=== PATIENT | male | born 1955 | race Caucasian/White ===

== ENCOUNTER → 2020-04-11 11:51 | Outpatient (CLI) | payer BC, SELFPAY ==
--- NOTE | ~2020-04-11 | XR_ITS ---
XR ribs BI 3V w CXR 2V DATE: 04/11/2020 12:13 INDICATION: Pleurodynia TECHNIQUE: PA and lateral views of the chest. 3 views of right ribs. 3 views of left ribs. COMPARISON: 01/03/2008 two-view chest FINDINGS: Heart size is within normal range. No hilar or mediastinal enlargement. No pulmonary infilt rate or consolidation, pleural effusion or pulmonary vascular congestion or pneumothorax. There is mild to moderate degenerative spurring of the thoracic spine. No left or right rib fracture or bone destruction is detected. IMPRESSION: No active cardiopulmonary disease No rib fracture or bone destruction is detected Degenerative changes of the thoracic spine Reviewed, dictated and finalized at location A. LING MACHINE OPERATOR
== END ==
PROVIDERS: PCP Family Medicine; Visit Provider Nurse Practitioner Family
DX: R07.81 Pleurodynia (principal); M51.34 Other intervertebral disc degeneration, thoracic region
CPT/HCPCS: 71046; 71110

== ENCOUNTER → 2020-05-19 01:04 | Outpatient (CLI) | payer BC, SELFPAY ==
[2020-05-19 19:48] LABS: SARS-CoV-2 RNA PCR Negative
== END ==
PROVIDERS: PCP Family Medicine; Visit Provider Internal Medicine Gastroenterology
DX: Z01.812 Encounter for preprocedural laboratory examination (principal); Z20.822 Contact with and (suspected) exposure to COVID-19
CPT/HCPCS: C9803; U0003; U0005

== ENCOUNTER 2020-05-22 00:29 | Day surgery (SDC) | payer BC, SELFPAY ==
[2020-04-16 10:41] VITALS: BMI 34.4
--- NOTE | 2020-04-23 16:20 | PC.NURSE ---
pt. rescheduled procedure due to family emergency. Called and reviewed updated date/times for procedure and COVID testing with patient. Sly Chong RN 04/23/20 [id number].
[2020-05-22 06:15] LABS: Glucose Point of Care 198 (65-105)
[2020-05-22 06:18] VITALS: BP 155/95; PULSE 104; RESP 18; TEMP 35.7; O2SAT 98
[2020-05-22] MEDS: LACTATED RINGERS 1,000 ML 150 ML IV CONT (06:39)
--- NOTE | 2020-05-22 07:12 | WPDANESEPPF ---
Anes - Initial Pre Proc Eval Procedure: Operation Date: 05/22/20 07:30 Proposed Procedures p Colonoscopy - Clifford Morel MD s [facility] Hemorrhoid Treatment - Clifford Morel MD Date/Time: 05/22/20 07:12 Surgeon: Clifford Morel MD Pre Op Diagnosis: hemorrhoids Patient Data Age: 64 Gender: M Height: 5 ft 11 in Weight: 111.2 kg Last Vital Signs Temp 35.7 C L 05/22/20 06:18 Pulse 104 H 05/22/20 06:18 Resp 18 05/22/20 06:18 BP 155/95 H 05/22/20 06:18 Pulse Ox 98 05/22/20 06:18 Allergies Allergy/AdvReac Type Severity Reaction Status Date / Time No Known Allergies Allergy Verified 05/22/20 06:54 Home Medications Medication Instructions Recorded Confirmed Type metformin 500 mg tablet 1,000 mg PO BID #360 tablet 04/25/19 05/22/20 Rx esomeprazole magnesium 40 mg 40 mg PO DAILY #90 cap 07/29/19 05/22/20 Rx capsule,delayed release flash glucose sensor #6 units 07/29/19 04/23/20 Rx Bio Complete 2 cap PO DAILY 04/16/20 05/22/20 History coQ10 (ubiquinol) 200 mg PO DAILY 04/16/20 05/22/20 History magnesium 500 mg PO DAILY 04/16/20 05/22/20 History wvwqrycppegq-znzuiooy-maixlm 1 tablet PO DAILY 04/16/20 05/22/20 History [Multivitamin 50 Plus] simethicone [Gas Relief 180 mg PO DAILY PRN 04/16/20 05/22/20 History (simethicone)] lisinopril 5 mg tablet See Rx Instructions .ROUTE 04/23/20 05/22/20 Rx .COMPLEX #90 tablet hydrochlorothiazide 25 mg tablet See Rx Instructions .ROUTE 04/29/20 05/22/20 Rx .COMPLEX #90 tablet Laboratory Tests 05/22/20 06:13 POC Capillary Glucose 198 mg/dl H mg/dl (65-105) Patient hx anesthesia problems: none Family hx anesthesia problems: none PMFSH Past Medical History Medical History Benign hypertension BMI 34.0-34.9,adult Diabetes Family History Family History Mother Cerebrovascular accident Diabetes mellitus Father Family history of diabetes mellitus in first degree relative Sibling No problems noted. 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 Questions were solicited and answers provided to the satisfaction of the patient/family/POA.
--- NOTE | 2020-05-22 07:33 | PM.HPGS ---
History of Present Illness History of Present Illness Consent: Risks, benefits, and alternatives have been discussed and questions answered. Patient agrees to proceed with procedure. Chief complaint: hemorrhoids Narrative: Lars Finney is a 64 year old male with history of polyps and blood in stools- also has hemorrhoids Review of Systems Constitutional: Constitutional: Denies headache(s) and Denies weakness Eyes: Eyes: Denies blurry vision ENT: Reports Normal hearing present, Denies headache(s) and Denies neck pain Cardiovascular: Cardiovascular: Denies chest pain and Denies dyspnea Respiratory: Respiratory: Denies dyspnea Gastrointestinal: Gastrointestinal: Reports no additional gastrointestinal complaints Genitourinary: Genitourinary: Denies dysuria Musculoskeletal: Musculoskeletal: Denies neck pain Integumentary/Breasts: Skin/Breast: Denies dry skin Neurologic: Reports Normal hearing present, Denies headache(s) and Denies weakness Psychiatric: Psychiatric: Denies anxiety Endocrine: Endocrine: Denies change in body appearance Hematologic/Lymphatic: Hematologic/Lymphatic: Denies easy bleeding Allergic/Immunologic: Allergic/Immunologic: Denies urticaria PMFSH Past Medical History Medical History Benign hypertension BMI 34.0-34.9,adult Diabetes Family History Family History Mother Cerebrovascular accident Diabetes mellitus Father Family history of diabetes mellitus in first degree relative Sibling No problems noted. 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[employer] Gender identity (if verbalized by the patient): Male Spiritual care concerns: No Meds Home Medications and Allergies Home Medications Medication Instructions Recorded Confirmed Type metformin 500 mg tablet 1,000 mg PO BID #360 tablet 04/25/19 05/22/20 Rx esomeprazole magnesium 40 mg 40 mg PO DAILY #90 cap 07/29/19 05/22/20 Rx capsule,delayed release flash glucose sensor #6 units 07/29/19 04/23/20 Rx Bio Complete 2 cap PO DAILY 04/16/20 05/22/20 History coQ10 (ubiquinol) 200 mg PO DAILY 04/16/20 05/22/20 History magnesium 500 mg PO DAILY 04/16/20 05/22/20 History lzqqecmqzydv-sdmhwhlu-yprdbg 1 tablet PO DAILY 04/16/20 05/22/20 History [Multivitamin 50 Plus] simethicone [Gas Relief 180 mg PO DAILY PRN 04/16/20 05/22/20 History (simethicone)] lisinopril 5 mg tablet See Rx Instructions .ROUTE 04/23/20 05/22/20 Rx .COMPLEX #90 tablet hydrochlorothiazide 25 mg tablet See Rx Instructions .ROUTE 04/29/20 05/22/20 Rx .COMPLEX #90 tablet Allergies Allergy/AdvReac Type Severity Reaction Status Date / Time No Known Allergies Allergy Verified 05/22/20 06:54 Vital Signs Vital Signs - 24 hr 05/22/20 06:18 Temperature 96.3 F L Pulse Rate 104 H Respiratory Rate 18 Blood Pressure 155/95 H Pulse Oximetry 98 Exam Const: General: comfortable and no acute distress HENMT: General nose exam: Normal nares present Eyes: General: appearance normal, both eyes and all related structures Neck: Neck: no JVD Resp: Auscultation: clear to auscultation bilaterally Cardio: Rate: regular rate Rhythm: regular rhythm GI: Inspection: non-distended GI Palp: Yes Soft to palpation Skin: General skin exam: normal color Neuro: General: gait normal Speech: normal speech Extrem: General: normal
[2020-05-22 07:54] VITALS: BP 135/82; PULSE 82; RESP 19; O2SAT 97
--- NOTE | 2020-05-22 07:56 | PM.PROC ---
Procedure Note - Detailed Date of procedure: 05/22/20 Pre-op diagnosis: hemorrhoids Post-op diagnosis: same Procedure performed: IRC Description of procedure: FINDINGS: internal hemorrhoids grade II Patient signed consent. No anal fissure, no bleeding. I introduced anoscope, found grade II non-bleeding internal hemorrhoids, then IRC probe was inserted and used for 1.5 seconds each time x5, patient tolerated procedure and will go to recovery area. Recommendations: use stool softners and avoid straining Surgeon: Clifford Morel MD Complications: No immediate complications Condition: stable
[2020-05-22 08:04] VITALS: BP 127/82; PULSE 78; RESP 18; O2SAT 98
[2020-05-22 08:14] VITALS: BP 147/85; PULSE 13; RESP 18; O2SAT 99
== END 2020-05-22 08:32 | disposition home or self-care (01) ==
PROVIDERS: PCP Family Medicine; Visit Provider Internal Medicine Gastroenterology
PROC: 0DJD8ZZ Inspection of Lower Intestinal Tract, Via Natural or Artificial Opening Endoscopic (ICD-10-PCS; CPT 45378; principal; 2020-05-22 07:30)
PROC: (CPT 46930; 2020-05-22 07:30)
DX: R19.7 Diarrhea, unspecified (principal); K64.8 Other hemorrhoids; Z86.010 Personal history of colon polyps; I10 Essential (primary) hypertension; E11.9 Type 2 diabetes mellitus without complications; Z87.891 Personal history of nicotine dependence; Z79.84 Long term (current) use of oral hypoglycemic drugs
CPT/HCPCS: 45380; 82948; 88305; J2704; J7120

== ENCOUNTER 2020-07-02 10:29 | Outpatient (CLI) | payer BC, SELFPAY | END 2020-07-02 10:30 | disposition home or self-care (01) | LOC: ANHCOVIDVC 10:29 | PROVIDERS: PCP Family Medicine | DX: Z23 Encounter for immunization (principal) | CPT/HCPCS: 0001A; 91300 ==

== ENCOUNTER 2020-07-23 10:31 | Outpatient (CLI) | payer BC, SELFPAY | END 2020-07-23 10:32 | disposition home or self-care (01) | LOC: ANHCOVIDVC 10:31 | PROVIDERS: PCP Family Medicine | DX: Z23 Encounter for immunization (principal) | CPT/HCPCS: 0002A; 91300 ==

== ENCOUNTER → 2020-09-24 13:26 | Outpatient (CLI) | payer BC, SELFPAY ==
--- NOTE | ~2020-09-24 | US_ITS ---
EXAMINATION: US abdomen complete EXAM DATE: 09/24/2020 13:51 INDICATION: Z72.89 - Other problems related to lifestyle, abn levels ser. TECHNIQUE: Multiple grayscale and Doppler images of the complete abdomen were obtained (by a technolo gist who performed the scan) and subsequently reviewed. Correlation is made to CT abdomen pelvis 2016 . FINDINGS: The abdominal aorta is normal in caliber. Visualized portion IVC is patent. The pancreatic head a nd body are normal in appearance. The pancreatic tail is not visualized. There is echogenic liver parenchyma, hepatic steatosis. There are a couple of 1 cm cysts. There is no evidence of intrahepatic biliary duct dilation. Portal venous flow was seen in the hepatopedal, n ormal direction and has normal Doppler waveform. Common bile duct measures 4 mm, which is normal. The gallbladder wall is normal in thickness, with ex pected amount of distention. No sonographic evidence of pericholecystic fluid. There is no cholelit hiases. Technologist performing exam reports patient did not demonstrate sonographic Ys's sign. Please note that this sign is less reliable in patients who have received pain medication. Right kidney: There is normal contour and echogenicity. It measures 12.9 x 5.4 x 6.4 centimeters. There are no focal renal lesions identified. There is no hydronephrosis. Left kidney: There is normal contour and echogenicity. It measures 11.4 x 5.8 x 6.1 centimeters. T here are no focal renal lesions identified. There is no hydronephrosis. The spleen measures 10.3 centimeters and is morphologically normal. IMPRESSION: 1. Hepatic steatosis. Reviewed, dictated and finalized at location A. IMPRESSION: 1. Hepatic steatosis.
== END ==
PROVIDERS: PCP Family Medicine; Visit Provider Nurse Practitioner Family
DX: K76.0 Fatty (change of) liver, not elsewhere classified (principal); Z72.89 Other problems related to lifestyle
CPT/HCPCS: 76700

== ENCOUNTER 2024-08-02 13:18 | Outpatient (CLI) | payer MEDICARE, OTHER, SELFPAY ==
--- NOTE | ~2024-08-02 | US_ITS ---
US abdomen complete EXAMINATION: US Abdomen Complete INDICATION: Elevated liver enzymes. PROCEDURE: Realtime High Resolution abdomen ultrasound. COMPARISON: No prior studies for comparison FINDINGS: Gallbladder within normal limits. No gallstones, pericholecystic fluid, gallbladder wall t hickening or biliary dilatation. Common bile duct measures 4 mm. Liver echotexture is increased, consistent with fatty infiltration. There is an oval hypoechoic 1 cm mass of the liver without internal vascularity or posterior features. There are additional simple cys t of the liver. Pancreas within normal limits. Pancreatic tail is obscured by bowel gas. Spleen is unremarkeable. Renal echotexture is within normal limits bilaterally without hydronephrosis, contour deforming mass or renal stone. Right kidney measures 10.7 cm. Left kidney measures 11.5 cm. Visualized aspects of the aorta and IVC are within normal limits. Portal vein is patent. No sonograph ic Sy's sign indicated by the technologist. IMPRESSION: 1: Oval hypoechoic 1 cm liver mass without internal vascularity or posterior features. Correlation wi th CT or MRI without and with contrast recommended for further assessment. 2: Fatty infiltration of the liver. 3: Liver cysts. Reviewed, dictated and finalized at location [] IMPRESSION: 1: Oval hypoechoic 1 cm liver mass without internal vascularity or posterior fe atures. Correlation with CT or MRI without and with contrast recommended for fu rther assessment. 2: Fatty infiltration of the liver. 3: Liver cysts.
== END 2024-08-02 13:19 | disposition home or self-care (01) ==
LOC: MICIMG 13:19
PROVIDERS: PCP Nurse Practitioner Family; Visit Provider Nurse Practitioner Family
DX: K76.0 Fatty (change of) liver, not elsewhere classified (principal); Z72.89 Other problems related to lifestyle; R74.8 Abnormal levels of other serum enzymes; K76.89 Other specified diseases of liver
CPT/HCPCS: 76700

== ENCOUNTER 2024-08-10 07:55 | Outpatient (CLI) | payer MEDICARE, SELFPAY ==
--- NOTE | ~2024-08-10 | CT_ITS ---
CT of the Abdomen: Indication: Hepatomegaly Technique: 2.5 mm axial scans were obtained through the abdomen prior to and following intravenous a dministration of 100 cc of Omnipaque 350. Dose reduction technique was used on this scan by utilizing automated exposure control and iterative reconstruction technique. The dose-length product (DLP) was 1752.10 mGy-cm. Findings: Scans through the lung bases are unremarkable. A few small hepatic cysts are present. Liver measures 20.6 cm in length. The spleen, pancreas, gallbl adder, and adrenal glands are within normal limits. Small bilateral nonobstructing renal stones are p resent. There are atherosclerotic calcifications of the aorta. No lymphadenopathy. Visualized bowel loops are unremarkable. No ascites. Impression: Hepatomegaly, of uncertain etiology. Small bilateral nonobstructing renal stones. Reviewed, dictated and finalized at location . Impression: Hepatomegaly, of uncertain etiology. Small bilateral nonobstructing renal stones.
--- OUTSIDE RECORDS SUMMARY | 2024-08-10 08:12 | XMS_ITS | Clinical Summary ---
Author Organization [facility] Address [address] [place] [address] Care Team Providers Care Interlocking Installer Name Role Phone Leon Almanza MD Primary Care Provider [phone] Source Comments [facility],non-owned Affiliates and Associated Physician Practices is amultiple site organization consisting of ambulatory clinics and hospital sitesin [place], [place], [place] and [place]. This disclosure is being madepursuant to the Care Everywhere program and may not contain all information available regarding this patient. Last updated 17.[facility] Allergies No known active allergies Medications * Be aware that medications may not be up to date on this document. Alwaysverify current medications with the patient. FARXIGA 10 MG tablet 1 (one) tablet once daily 02/05/2021 Active Continuous Blood Gluc Sensor (FREESTYLE LILO 14 DAY SENSOR) [facility] 12/30/2020 Active lisinopril (PRINIVIL;ZESTR IL) 5 MG tablet 1 (one) tablet once daily 02/05/2021 Active rosuvastatin (CRESTOR) 20 MG tablet 1 (one) tablet once daily 02/05/2021 Active esomeprazole (NEXIUM) 40 MG capsule 1 (one) capsule once daily 02/04/2021 Active Coenzyme Q10 (COQ10 PO) Take 200 mg by mouth once daily Active Multiple Vitamins-Minera ls (CENTRUM PO) Take by mouth once daily Active magnesium 500 MG tablet Take 1 (one) tablet by mouth once daily Active Cholecalciferol (VITAMIN D3 PO) Take 125 mcg by mouth once daily Active MILK THISTLE PO Take 1,000 mg by mouth once daily Active Turmeric (QC TUMERIC COMPLEX PO) Take 600 mg by mouth once daily Active KRILL OIL PO Take 3,000 mg by mouth once daily Active PREBIOTIC PRODUCT PO Take 1,000 mg by mouth once daily Active Active Problems Problem Noted Date Diagnosed Date Obesity 05/31/2021 NAFLD (nonalcoholic fatty liver disease) 022 Overview (05/31/2021): 05/30/21 Fibroscan CAP 305, LSM 13.5 kPa Diabetes Immunizations Immunization Administration Dates Next Due Covid Pfizer primary monoval ent 12+ yr 0.3mL Purple cap 02/19/2021,07/23/2020,07/02/2020 Social History Tobacco Use Types Packs/Day Years Used Date Smoking Tobacco: Never Smokeless Tobacco: Never Tobacco Cessation:Counseling Given: Not Answered Alcohol Use Standard Drinks/Week Comments Yes 0 (1 standard drink = 0.6 oz pur e alcohol) Ocassional Sex and Gender Information Value Date Recorded Sex Assigned at Not on file Legal Sex Male 10:09 AM SCIENTIFIC DIVER Gender Identity Not on file Sexual Orientation Not on file Last Filed Vital Signs Vital Sign Reading Time Taken Comments Blood Pressure 119/71 09/22/2022 2:43 PM CDT Pulse 64 09/22/2022 2:43 PM CDT Temperature 36.5 C (97.7 F) 09/22/2022 2:43 PM CDT Respiratory Rate 18 09/22/2022 2:43 PM CDT Oxygen Saturation 100% 09/22/2022 2:43 PM CDT Inhaled Oxygen Concentration - - Weight 96.2 kg (212 lb) 09/22/2022 2:43 PM CDT Height 180.3 cm (5' 11) 03/25/2022 1:13 PM SCIENTIFIC DIVER Body Mass Index 29.57 03/25/2022 1:13 PM SCIENTIFIC DIVER Plan of Treatment Health Maintenance Due Date Last Done Comments COLOGUARD (AGES 45-75) - COLON CA SCREENING 1955 COLON MONITORING 1955 COLONOSCOPY - COLON CA SCREENING 1955 CT COLONOGRAPHY - COLON CA SCREENING 1955 Colorectal Cancer Screening 1955 FIT - COLON CA SCREENING 1955 FLEX SIG - COLON CA SCREENING 1955 MEDICARE AWV 12 MONTHS 1955 DTAP/TDAP/TD VACCINES (1 - Tdap) 11/29/1974 PNEUMOCOCCAL VACCINE 50+ (1 of 2 - PCV) 11/29/1974 ZOSTER VACCINE (1 of 2) 11/29/2005 Respiratory Syncytial Virus (RSV) Vaccine Pt: or over 60 yrs (1 - Risk 60-74 years 1-dose series) 2015 DIABETES RETINOPATHY SCREENING 05/31/2021 DIABETES-FOOT EXAM WITH MONOFILAMENT 05/31/2021 DIABETES-HGB A1C 05/31/2021 DIABETES-SERUM CREATININE 09/20/20232022, 03/21/2022, 09/02/2021, Additional history exists COVID-19 VACCINE ( season) 2023 02/19/2021, 07/23/2020, 07/02/2020 DEPRESSION SCREENING 03/16/2024 DIABETES - URINE PROTEIN SCREENING 03/16/2024 INFLUENZA VACCINE (Season Ended) 2024 HEPATITIS C SCREENING Completed 05/24/2021 HEPATITIS B VACCINE Aged Out No longe r eligible based on patient's age to complete this topic HIB VACCINE Aged Out No longer eligi ble based on patient's age to complete this topic HPV VACCINE Aged Out No longer eligi ble based on patient's age to complete this topic MENINGOCOCCAL (Group B) VACCINE SHARED DECISION-MAKING Aged Out No longer eligible based on patient's age to complete this topic MENINGOCOCCAL GROUPS A/C/Y/W VACCINE Aged Out No longer eligible based on patient's age to complete this topic Goals Goal Patient Goal Type Associated Problems Recent Progress Patient-Stated? Author Medication Management General On track( 023 2:45 PM CDT) No Tonja Beauchamp, RN Note: Expected end date: Ongoing Interventions: Take all medications as prescribed Let your doctor know right away about any changes in your medications Make sure to request a refill of your medication at least one week prior to your last dose Procedures Procedure Name Priority Date/Time Associated Diagnosis Comments COMPREHENSIVE METABOLIC PANEL Routine 09/19/2022 9:49 AM CDT Alcoholic steatohepatitis [place] (nonalcoholic steatohepatitis) Cirrhosis of liver without ascites, unspecified hepatic cirrhosis type HEPATITIS C ANTIBODY Routine 05/24/2021 9:48 AM SCIENTIFIC DIVER Elevated liver enzymes from Last 3 Months or Most Recently Relevant to Health Maintenance Results * (ABNORMAL) COMPREHENSIVE METABOLIC PANEL (09/19/2022 9:49 AM CDT) Glucose NOT AVAILABLE mg/dL [facility] INSURANCE BILL Comment: Test not performed. Serum was in contact with cells when received which will make the result inaccurate. Result cannot be obtained for this observation. BUN 15 8 - 27 mg/dL [facility] INSURANCE BILL Creatinine 0.95 0.76 - 1.27 mg/dL [facility] INSURANCE BILL eGFR by CKD-EPI 88 >59 mL/min/1. 73 [facility] INSURANCE BILL BUN/Creatinine Ratio 16 10 - 24 [facility] INSURANCE BILL Sodium 140 134 - 144 mmol/L [facility] INSURANCE BILL Potassium NOT AVAILABLE mmol/L [facility] INSURANCE BILL Comment: Test not performed. Serum was in contact with cells when received which will make the result inaccurate. Result cannot be obtained for this observation. Chloride 98 96 - 106 mmol/L [facility] INSURANCE BILL CO2 21 20 - 29 mmol/L [facility] INSURANCE BILL Calcium 10.9(H) 8.6 - 10.2 mg/dL [facility] INSURANCE BILL Protein Total 7.9 6.0 - 8.5 g/dL [facility] INSURANCE BILL Albumin 5.1(H) 3.8 - 4.8 g/dL [facility] INSURANCE BILL Comment: Effective September 22, 2022 Albumin reference interval will be changing to: Age Male Female 0 - 7 days 3.6 - 4.9 3.6 - 4.9 8 - 30 days 3.5 - 4.6 3.5 - 4.6 1 - 6 months 3.7 - 4.8 3.7 - 4.8 7 months - 2 years 4.0 - 5.0 4.0 - 5.0 3 - 5 years 4.1 - 5.0 4.1 - 5.0 6 - 12 years 4.2 - 5.0 4.2 - 5.0 13 - 30 years 4.3 - 5.2 4.0 - 5.0 31 - 50 years 4.1 - 5.1 3.9 - 4.9 51 - 60 years 3.8 - 4.9 3.8 - 4.9 61 - 70 years 3.9 - 4.9 3.9 - 4.9 71 - 80 years 3.8 - 4.8 3.8 - 4.8 81 - 89 years 3.7 - 4.7 3.7 - 4.7 90 - 199 years 3.6 - 4.6 3.6 - 4.6 Globulin Total 2.8 1.5 - 4.5 g/dL [facility] INSURANCE BILL Albumin/Globuli n Ratio 1.8 1.2 - 2.2 [facility] INSURANCE BILL Bilirubin Total 0.4 0.0 - 1.2 mg/dL [facility] INSURANCE BILL Alkaline Phosphatase 68 44 - 121 IU/L [facility] INSURANCE BILL AST 34 0 - 40 IU/L [facility] INSURANCE BILL ALT 32 0 - 44 IU/L [facility] INSURANCE BILL Comment:FASTING Blood BLOOD SPECIMEN / Unknown 09/19/2022 9:49 AM CDT 09/19/2022 Narrative Resulting Agency Comment Lab Testing performed at: [address] [id number] Toma Hernandez HISTOLOGY ASSISTANT-FACS TEACHER LAB - CHEMISTRY ORD ERABLES Final Result [facility] INSURANCE BILL [address] [place] [address] * HEPATITIS C ANTIBODY (05/24/2021 9:48 AM SCIENTIFIC DIVER) Hepatitis C Antibody <0.1 0.0 - 0.9 s/co ratio [facility] INSURANCE BILL Comment: Negative: < 0.8 Indeterminate: 0.8 - 0.9 Positive: > 0.9 . The CDC recommends that a positive HCV antibody result be followed up with a HCV Nucleic Acid Amplification test (152300). FASTING Blood BLOOD SPECIMEN / Unknown 05/24/2021 9:48 AM SCIENTIFIC DIVER 05/24/2021 Narrative Resulting Agency Comment Lab Testing performed at: [facility] [address] [facility] [id number] Toma Lexx Hernandez HISTOLOGY ASSISTANT-FACS TEACHER LAB - CHEMISTRY ORD ERABLES Final Result [facility] INSURANCE BILL [address] [place] [address] from Last 3 Months or Most Recently Relevant to Health Maintenance Insurance [facility] Care Teams Interlocking Installer Relationship Specialty Start Date End Date Leon Almanza MD [address] [place] [id number] PCP - General 05/23/20
--- OUTSIDE RECORDS SUMMARY | 2024-08-10 08:12 | XMS_ITS | Continuity of Care Document ---
Author Organization [facility] Address [address] [place] [address] [address] [place] [address] Phone Care Team Providers Care Processing Rep Name Role Phone Sandra Galvan Unavailable Unavailable Procedures Procedure Date Eye Exam, New Patient Advance Directives Directive Yes / No Effective Date File Name No Information Encounters Encounter Description Practice Location Reason(s) For Visit Diagnoses Date Provider Providers Copied on Encounter [facility], [id number] [place] [address] [address], [place], [place], [id number], [place] tel:[phone] [facility] No Information [address] Mandy Flores. [address] , [address], [place], [address], [place]. tel:[phone] Family History Family Member Type Diagnosis Age At Onset No Information Payers Payer name Insurance type Covered green party ID Authoriza tinilo(s) [facility] Commercial CI [id number] Social History Type Description Quantity Date Captured Comments Sex Male Smoking Status No Information Chief Complaint And Reason For Visit No Information Reason For Referral Reason For Referral No Information History Of Present Illness Encounter Date Complaint History Of Prese nt Illness No Information Functional Status Date Functional Assessmen t No Information Instructions Date Instruction Additional Infor mation No Information Assessments Type Assessment Date No Information Patient Care Teams Name Effective Dates (start - stop) Status Members No Information
[2024-08-10 08:43] LABS: Estimated Glomerular Filt Rate > 60
== END 2024-08-10 07:56 | disposition home or self-care (01) ==
PROVIDERS: PCP Family Medicine; Visit Provider Nurse Practitioner Family
DX: R16.0 Hepatomegaly, not elsewhere classified (principal); N20.0 Calculus of kidney
CPT/HCPCS: 74170; Q9967